=== PATIENT | male | born 1940 | race Caucasian/White ===

== ENCOUNTER → 2025-09-08 | Day surgery (SDC) | payer MEDICARE, OTHER ==
[~2025-09-08] MED LIST: Sodium Chloride 0.9% 10 ML Syringe FLUSH PRN
[2025-09-08] MEDS: Lactated Ringers 1,000 ML IV SCH (07:02)
== END | disposition home or self-care (01) ==
LOC: FB.SDS 06:20
PROVIDERS: ATTEND Surgery
DX: C44.519 Basal cell carcinoma of skin of other part of trunk (principal); C44.612 Basal cell carcinoma of skin of right upper limb, including shoulder; L90.5 Scar conditions and fibrosis of skin; I25.10 Atherosclerotic heart disease of native coronary artery without angina pectoris; E11.9 Type 2 diabetes mellitus without complications; I10 Essential (primary) hypertension; Z79.4 Long term (current) use of insulin; Z79.82 Long term (current) use of aspirin; Z87.891 Personal history of nicotine dependence; Z79.899 Other long term (current) drug therapy
CPT/HCPCS: 36415; 82947; 84132; 88305; 99100; J0690; J7120